=== PATIENT | female | born 1985 | race African-American/Black ===

== ENCOUNTER 2019-05-29 20:02 | Emergency (ER) | payer BC ==
[~2019-05-29] VITALS: Ht 170.2 cm; Wt 68.0 kg
[2019-05-29 20:25] VITALS: BP 154/106
--- NOTE | 2019-05-29 20:25 | NUR ---
ED Nurse Note: Pt walked into ED from home for c/o CP onset last night. Pt states pain is pressure like in nature and radiates to her L arm/back. Pt states pain has started to resolve since last night, but she was worried and wanted to be checked out. Pt is aaox4, breathing is normal and unlabored. No acute distress noted.
[2019-05-29] MEDS ORDERED: ROBAXIN-750750 MG PO (20:50)
[2019-05-29] MEDS ORDERED: LIDODERM700 M1 TOPIC (20:50)
[2019-05-29] MEDS ORDERED: TYLENOL EXTRA500 MG ORAL (20:50)
[2019-05-29 20:55] VITALS: BP 149/101
--- NOTE | 2019-05-29 20:55 | NUR ---
ER DISCHARGE NOTE: Patient is cleared to be discharged per ERMD, pt is aox4, on room air, with stable vital signs. pt was given dc and prescription instructions, pt was able to verbalize understanding, pt id band removed. pt is able to ambulate with steady gait. pt took all belongings.
--- NOTE | 2019-05-29 21:46 | Emergency Room Report ---
History of Present Illness General Chief Complaint: General Complaint Source: Patient Present Illness HPI 33-year-old female presents ED for evaluation. Complaining of chest pain. Started yesterday. Left-sided, dull, 5 out of 10, radiating through the neck and upper back. States that chest pain has resolved but still states she is having some upper back pain. Denies fevers or chills. Denies shortness of breath. Denies cough. No other aggravating relieving factors. Denies any other associated symptoms Allergies: Uncoded Allergies: PENICILLIN (Allergy, Unknown, 05/29/19) COVID-19 Screening Contact w/high risk pt: No Recent Travel to affected area: No Experienced COVID-19 symptoms?: No Patient History Past Medical History: asthma Past Surgical History: none Pertinent Family History: none Social History: Denies: smoking, alcohol use, drug use Last Menstrual Period: 05/18/19 Now: No Immunizations: UTD Reviewed Nursing Documentation: PMH: Agreed; PSxH: Agreed Nursing Documentation-PMH Hx Asthma: Yes Review of Systems All Other Systems: negative except mentioned in HPI Physical Exam Vital Signs Date Time Temp Pulse Resp B/P (MAP) Pulse Ox O2 Delivery O2 Flow Rate FiO2 05/29/19 20:09 97.5 64 19 154/106 (122) 99 Room Air Sp02 EP Interpretation: reviewed, normal General Appearance: no apparent distress, alert, GCS 15, non-toxic Head: normocephalic, atraumatic Eyes: bilateral eye normal inspection, bilateral eye PERRL ENT: hearing grossly normal, normal pharynx, no angioedema, normal voice Neck: full range of motion, no bony tend, supple/symm/no masses, tender lateral Respiratory: lungs clear, normal breath sounds, speaking full sentences, other - reproducible L anterior chest wall pain Cardiovascular #1: regular rate, rhythm, no edema Cardiovascular #2: 2+ carotid (R), 2+ carotid (L), 2+ radial (R), 2+ radial (L) , 2+ dorsalis pedis (R), 2+ dorsalis pedis (L) Gastrointestinal: normal bowel sounds, non tender, soft, non-distended, no guarding, no rebound Rectal: deferred Genitourinary: normal inspection, no CVA tenderness Musculoskeletal: back normal, normal range of motion, gait/station normal, non- tender Neurologic: alert, motor strength/tone normal, oriented x3, sensory intact, responsive, speech normal Psychiatric: judgement/insight normal, memory normal, mood/affect normal, no suicidal/homicidal ideation Reflexes: 3+ bicep (R), 3+ bicep (L), 3+ tricep (R), 3+ tricep (L), 3+ knee (R) , 3+ knee (L) Skin: no rash Lymphatic: no adenopathy Medical Decision Making Diagnostic Impression: Primary Impression: Chest pain Qualified Codes: R07.9 - Chest pain, unspecified ER Course Hospital Course 33-year-old female presents ED complaining of reproducible chest wall pain, neck and upper back pain Differential diagnoses include: Rib fracture, [place]/unstable angina, contusion, muscle strain Clinical course Patient placed on stretcher. After initial history, physical exam reveals a female in no acute distress. There is some reproducible left-sided rib pain. Some pain to the upper back. All reproducible. Lungs clear. EKGnormal sinus rhythm no acute ischemic changes interpreted by me I discussed findings with patient. Pain is likely muscular. Has no cardiac risk factors. Consistent with exam. Reassurance given. Will discharge home with medications. Safe for discharge for close outpatient follow-up. States she has a PMD I. I feel this is a highly complex case requiring extensive working including EKG/Rhythm strip, Xray/CT/US, Blood/urine lab work, repeat exams while in ED, and administration of strong opiates/narcotics for pain control, admission to hospital or close patient follow up. Diagnosis - chest wall pain Stable and discharged to home with prescription for Tylenol, Robaxin, Lidoderm. Instructed to followup with PMD. Return to ED if symptoms recur or worsen EKG Diagnostic Results Rate: bradycardiac Rhythm: NSR ST Segments: no acute changes ASA given to the pt in ED: No Rhythm Strip Diag. Results EP Interpretation: yes Rhythm: NSR, no PVC's, no ectopy Last Vital Signs Date Time Temp Pulse Resp B/P (MAP) Pulse Ox O2 Delivery O2 Flow Rate FiO2 05/29/19 20:55 97.5 61 19 149/101 99 Room Air Status: improved Disposition: HOME, SELF-CARE Condition: Stable Scripts Methocarbamol* (ROBAXIN-750*) 750 Mg Tablet 750 MG PO TID, #21 TAB 0 Refills Prov: Juventino Colindres MD 05/29/19 Lidocaine Patch* (Lidoderm Patch*) 1 Each Adh..patch 1 PATCH TOPIC DAILY, #7 PATCH 0 Refills Patch(es) may remain in place for up to 12 hours in any 24-hour period. Prov: Juventino Colindres MD 05/29/19 Acetaminophen* (TYLENOL EXTRA STRENGTH*) 500 Mg Tablet 500 MG ORAL Q8H PRN for Prn Headache/Temp > 101, #30 TAB 0 Refills Prov: Juventino Colindres MD 05/29/19 Referrals: [facility],REFERRING (PCP) Patient Instructions: Chest Wall Pain, [id number] Additional Instructions: in light of current coronavirus pandemic we encourage you to stay home and self- isolate. Juventino Colindres MD May 29, 2019 21:46
== END 2019-05-29 20:55 | disposition home or self-care (01) ==
LOC: EMR 20:50
DX: R07.9 Chest pain, unspecified (principal); M54.2 Cervicalgia; M54.6 Pain in thoracic spine; Z88.0 Allergy status to penicillin; R07.81 Pleurodynia
CPT/HCPCS: 93005; 99283